=== PATIENT | female | born 1995 | race Caucasian/White ===

== ENCOUNTER 2017-02-18 13:43 | Emergency (ER) | payer OTHER ==
[~2017-02-18] VITALS: Ht 152.4 cm; Wt 59.0 kg
[2017-02-18 13:57] VITALS: TEMP 37.3; Ht 152.4 cm; Wt 59.0 kg
[2017-02-18] MEDS ORDERED: SODIUM CHLORIDE 0.9% 1000ML 1,000 ML IV STA (14:17)
[2017-02-18] MEDS ORDERED: ONDANSETRON INJ 2 MG/ML 2 ML VIAL IV STA (14:17)
[2017-02-18] MEDS ORDERED: MoRPHine SULFATE 4 MG/ML 1 ML CARP\\VIAL IV STA (14:17)
--- NOTE | 2017-02-18 14:22 | EMERGENCY ROOM VISIT NOTE ---
History Report prepared by Xuan: Eugenio Fortune Under the Supervision of: Dr. Nubia Duvall M.D. First contact with patient: 14:07 Chief Complaint: RECTAL PAIN Stated Complaint: SWELLING/PAIN IN RECTAL AREA History of Present Illness The patient is a 21 year old female who presents to the Emergency Room with complaints of worsening right buttocks pain that started last week. She rates her pain as a 10/10 in severity. The patient describes her pain as a "soreness" and reports there is swelling. She states that she went to [facility] for her symptoms , where she was diagnosed with hemorrhoids and was given cream. The patient states that she has been using the cream, but her symptoms have been becoming worse since. She also reports that she has been given stool softener to help alleviate pain when she has a bowel movement. She states that she has never experienced these symptoms in the past. The patient denies any diarrhea, fever, vomiting, allergies, or medical problems. Source of History: patient Onset: last week Position: buttock (right) Symptom Intensity: 10/10 Quality: other (sore) Timing: worsening Modifying Factors (Worsening): other (bowel movement) Associated Symptoms: No fevers, No vomiting, No diarrhea Review of Systems See HPI for pertinent positives & negatives. A total of 10 systems reviewed and were otherwise negative. Past Medical & Surgical The patient reports no pertinent medical or surgical history. Family History Patient reports no known family medical history. Social History Smoking Status: Never Smoker Marital Status: single Occupation Status: student Current/Historical Medications Scheduled Cephalexin Monohydrate (Keflex), 500 MG PO QID Sulfa/Trimethoprim (Bactrim Ds 800MG/160MG), 1 TAB PO BID Allergies Coded Allergies: No Known Allergies (Unverified , 02/18/17) Physical Exam Vital Signs Date Time Temp Pulse Resp B/P (MAP) Pulse Ox O2 Delivery O2 Flow Rate FiO2 02/18/17 17:24 116 16 104/67 94 02/18/17 16:05 100 20 110/71 99 Room Air 02/18/17 14:39 107 02/18/17 13:57 37.3 121 20 108/73 99 Room Air Physical Exam Vital signs reviewed. General: Well-appearing 21 year old female, in no significant distress. HEENT: No scleral icterus, PERRLA, neck supple. Atraumatic. Cardiovascular: Regular rate and rhythm, no extra sounds. Pulmonary: Clear to auscultation bilaterally, normal work of breathing. Abdomen: Soft, nontender, nondistended, positive bowel sounds. Musculoskeletal: Atraumatic, no peripheral edema. Induration of right butt cheek. No hemorrhoid appreciated. Neurologic: Patient awake alert and oriented x 3 Skin: Warm, dry, no rash Medical Decision & Procedures ER Provider Diagnostic Interpretation: CT results as stated below per my review and radiologist interpretation: PELVIS W/IV CONT ONLY (CT) HISTORY: Left gluteal swelling. TECHNIQUE: Multiaxial CT images of the pelvis were performed following the use of intravenous contrast. COMPARISON STUDY: None. FINDINGS: There is a 5.7 x 3.1 cm left perianal peripheral enhancing fluid collection containing a punctate focus of gas. This is consistent with a perianal abscess. There is mild adjacent fat stranding and skin thickening within the left perineal/gluteal location. There is no associated supralevator extension. The bladder, uterus, bilateral ovaries are unremarkable. Trace pelvic free fluid which is likely physiologic. No bowel wall thickening or obstruction. Normal appendix. The visualized osseous structures are within normal limits. IMPRESSION: A 5.7 x 3.1 cm left perianal abscess. Electronically signed by: Sachin Apple M.D. 02/18/2017 3:39 PM Dictated Date/Time: 02/18/2017 3:36 PM Laboratory Results 02/18/17 14:29 Red Blood Count 4.13, Mean Corpuscular Volume 95.4, Mean Corpuscular Hemoglobin 32.7, Mean Corpuscular Hemoglobin Concent 34.3, Mean Platelet Volume 9.6, Neutrophils (%) (Auto) 80.9, Lymphocytes (%) (Auto) 9.1, Monocytes (%) (Auto) 8.7, Eosinophils (%) (Auto) 0.6, Basophils (%) (Auto) 0.2, Neutrophils # (Auto) 14.63, Lymphocytes # (Auto) 1.64, Monocytes # (Auto) 1.57, Eosinophils # (Auto) 0.11, Basophils # (Auto) 0.03 02/18/17 14:29 Test 02/18/17 14:29 White Blood Count 18.07 K/uL (4.8-10.8) Red Blood Count 4.13 M/uL (4.2-5.4) Hemoglobin 13.5 g/dL (12.0-16.0) Hematocrit 39.4 % (37-47) Mean Corpuscular Volume 95.4 fL (80-100) Mean Corpuscular Hemoglobin 32.7 pg (25-34) Mean Corpuscular Hemoglobin Concent 34.3 g/dl (32-36) Platelet Count 313 K/uL (130-400) Mean Platelet Volume 9.6 fL (7.4-10.4) Neutrophils (%) (Auto) 80.9 % Lymphocytes (%) (Auto) 9.1 % Monocytes (%) (Auto) 8.7 % Eosinophils (%) (Auto) 0.6 % Basophils (%) (Auto) 0.2 % Neutrophils # (Auto) 14.63 K/uL (1.4-6.5) Lymphocytes # (Auto) 1.64 K/uL (1.2-3.4) Monocytes # (Auto) 1.57 K/uL (0.11-0.59) Eosinophils # (Auto) 0.11 K/uL (0-0.5) Basophils # (Auto) 0.03 K/uL (0-0.2) RDW Standard Deviation 42.9 fL (36.4-46.3) RDW Coefficient of Variation 12.5 % (11.5-14.5) Immature Granulocyte % (Auto) 0.5 % Immature Granulocyte # (Auto) 0.09 K/uL (0.00-0.02) Urine Color YELLOW Urine Appearance CLEAR (CLEAR) Urine pH 5.5 (4.5-7.5) Urine Specific [place] 1.022 (1.000-1.030) Urine Protein NEG (NEG) Urine Glucose (UA) NEG (NEG) Urine Ketones TRACE (NEG) Urine Occult Blood NEG (NEG) Urine Nitrite NEG (NEG) Urine Bilirubin NEG (NEG) Urine Urobilinogen NEG (NEG) Urine Leukocyte Esterase MODERATE (NEG) Urine WBC (Auto) >30 /hpf (0-5) Urine RBC (Auto) 0-4 /hpf (0-4) Urine Hyaline Casts (Auto) 5-10 /lpf (0-5) Urine Epithelial Cells (Auto) >30 /lpf (0-5) Urine Bacteria (Auto) 1+ (NEG) Anion Gap 5.0 mmol/L (3-11) Est Creatinine Clear Calc Drug Dose 77.5 ml/min Estimated GFR () 102.5 Estimated GFR (Non- 88.5 BUN/Creatinine Ratio 8.1 (10-20) Calcium Level 9.3 mg/dl (8.5-10.1) Total Bilirubin 0.3 mg/dl (0.2-1) Direct Bilirubin < 0.1 mg/dl (0-0.2) Aspartate Amino Transf (AST/SGOT) 11 U/L (15-37) Alanine Aminotransferase (ALT/SGPT) 14 U/L (12-78) Alkaline Phosphatase 70 U/L (45-117) Total Protein 7.6 gm/dl (6.4-8.2) Albumin 3.1 gm/dl (3.4-5.0) Laboratory results per my review. Medications Administered Medications (Trade) Dose Ordered Sig/Jamal Route Start Time Stop Time Status Last Admin Dose Admin Sodium Chloride 1,000 ml @ 999 mls/hr Q1H1M STAT IV 02/18/17 14:17 02/18/17 15:17 DC 02/18/17 14:31 999 MLS/HR Morphine Sulfate (MoRPHine SULFATE INJ) 4 mg NOW STAT IV 02/18/17 14:17 02/18/17 14:20 DC 02/18/17 14:32 4 MG Ondansetron HCl (Zofran Inj) 4 mg NOW STAT IV 02/18/17 14:17 02/18/17 14:20 DC 02/18/17 14:31 4 MG Trimethoprim/ Sulfamethoxazole (Septra Ds 800/ 160MG Tab) 1 tab NOW STAT PO 02/18/17 16:50 02/18/17 16:52 DC 02/18/17 16:59 1 TAB Cephalexin Monohydrate (Keflex Cap) 500 mg NOW ONCE PO 02/18/17 17:00 02/18/17 17:01 DC 02/18/17 16:59 500 MG Procedure Incision & Drainage Indication: Abscess. Location: left gluteal cleft/buttocks Verbal consent was obtained after the risks and benefits were explained, including but not limited to bleeding, scarring, infection, pain, and bone/joint /nerve damage. At this time, the risks of the procedure are less than the risks of NOT performing the procedure. A time out was taken and the correct patient and site identified. The skin was prepped with betadine and a sterile field set. The wound was anesthetized with 3 ml of 1% lidocaine without epinephrine. The abscess cavity was entered with a number 11 blade and purulent material expressed. Copious irrigation was performed using saline. The wound was explored for foreign bodies and none found. Debridement was not performed. Packing placed and a sterile dressing applied. Detailed wound care instructions and signs and symptoms of worsening infection reviewed with the patient. No complications and the patient tolerated the procedure well. ED Course 1411: Past medical records reviewed. The patient was evaluated in room C01B. A complete history and physical examination was performed. 1417: Ordered Zofran Injection 4 mg IV, Morphine Sulfate 4 mg IV, Sodium Chloride 1000 ml @ 999 mls/hr IV. 1615: Ordered Lidocaine HCl 20 ml INFIL. 1650: Ordered Trimethoprim/Sulfamethoxazole 1 tab PO. 1658: I performed an incision and drainage. See procedure notes for further detail. 1700: Ordered Keflex Cap 500 mg PO. 1721: Upon reevaluation, the patient appeared to have improvement of her symptoms. I discussed findings with the patient. She verbalized agreement of the treatment plan. The patient was discharged home. Medical Decision The differential diagnosis includes but is not limited to: cellulitis, abscess, hemorrhoid, contusion, and phlegmon. This patient was evaluated and appeared to be in some discomfort. IV access was obtained and laboratory work was drawn. Patient is found to have an elevated white blood cell count. Physical examination is concerning for induration of the right buttock. Patient seems to be in some discomfort when the area is palpated. She was medicated with IV morphine and Zofran. CT scan of the pelvis was performed and reveals a left perianal abscess. The patient was given 1 g of IV ceftriaxone and a Bactrim tablet. The area was I&D, please my procedure note above. Wound culture was obtained. The patient was discharged on Keflex and Bactrim 7 days. The wound was packed and she was advised to follow-up with [facility] and 48 hours for packing removal. She will return to the ER for worsening of symptoms or any medical concerns. Medication Reconcilliation Current Medication List: was personally reviewed by me Blood Pressure Screening Patient's blood pressure: Normal blood pressure Impression Primary Impression: Perianal abscess Scribe Attestation The scribe's documentation has been prepared under my direction and personally reviewed by me in its entirety. I confirm that the note above accurately reflects all work, treatment, procedures, and medical decision making performed by me. Departure Information Dispostion Home / Self-Care Prescriptions Cephalexin Monohydrate (Keflex) 500 Mg Cap 500 MG PO QID, #28 CAP Prov: Nubia Duvall M.D. 02/18/17 Sulfa/Trimethoprim (Bactrim Ds 800MG/160MG) Tab 1 TAB PO BID, #14 TAB Prov: Nubia Duvall M.D. 02/18/17 Referrals No Doctor, Assigned (PCP) Forms HOME CARE DOCUMENTATION FORM, IMPORTANT VISIT INFORMATION, WORK / SCHOOL INSTRUCTIONS Patient Instructions My [facility] Additional Instructions Diagnosis: Perianal abscess Bactrim DS 1 tablet twice daily for 7 days. Keflex 500 mg 4 times daily for 7 days. Ibuprofen 600 mg every 6 hours as needed for pain with food. Wash with warm water and soap 1-2 times daily and after bowel movements. Follow-up with [facility] in 48 hours for packing removal. Return to the emergency department for worsening of symptoms or any medical concerns.
[2017-02-18] MEDS ORDERED: OPTIRAY 320 IV PRN (14:30)
[2017-02-18 14:47] LABS: BASO % 0.2 %; BASO ABS # 0.03 K/uL (0-0.2); COMPLETE YES; EOS % 0.6 %; HEMATOCRIT 39.4 % (37-47); IG% 0.5 %; LYMPH % 9.1 %; LYMPH ABS # 1.64 K/uL (1.2-3.4); MEAN CELL VOLUME 95.4 fL (80-100); MEAN CORPUSCULAR HEMOGLOBIN 32.7 pg (25-34); MEAN CORPUSCULAR HGB CONC 34.3 g/dl (32-36); MEAN PLATELET VOLUME 9.6 fL (7.4-10.4); MONO % 8.7 %; NEUT % 80.9 %; PLATELET COUNT 313 K/uL (130-400); RED BLOOD COUNT 4.13 M/uL (4.2-5.4); WHITE BLOOD COUNT 18.07 K/uL (4.8-10.8)
[2017-02-18 14:56] LABS: URINE APPEARANCE CLEAR (CLEAR); URINE BILIRUBIN NEG (NEG); URINE COLOR YELLOW; URINE EPITHELIAL CELL AUTO >30 /lpf (0-5); URINE NITRITE NEG (NEG); URINE PH 5.5 (4.5-7.5); URINE SPECIFIC GRAVITY 1.022 (1.000-1.030); UROBILINOGEN NEG (NEG); ZZUR CULT IF INDIC CLEAN CATCH YES
[2017-02-18 15:03] LABS: ALT/SGPT 14 U/L (12-78); AST/SGOT 11 U/L (15-37); BLOOD UREA NITROGEN 8 mg/dl (7-18); BUN/CREATININE RATIO 8.1 (10-20); CALCIUM 9.3 mg/dl (8.5-10.1); CARBON DIOXIDE 29 mmol/L (21-32); CHLORIDE 103 mmol/L (98-107); CREATININE 0.93 mg/dl (0.60-1.20); GLUCOSE 102 mg/dl (70-99); POTASSIUM 3.5 mmol/L (3.5-5.1); SODIUM 137 mmol/L (136-145)
[2017-02-18 15:06] LABS: ALKALINE PHOSPHATASE 70 U/L (45-117)
[2017-02-18 15:19] LABS: MANUAL MICROSCOPIC REQUIRED? NO; REVIEW REQ? NO
--- NOTE | 2017-02-18 15:41 | DIAGNOSTIC IMAGING REPORT ---
PELVIS W/IV CONT ONLY (CT) HISTORY: Left gluteal swelling. TECHNIQUE: Multiaxial CT images of the pelvis were performed following the use of intravenous contrast. COMPARISON STUDY: None. FINDINGS: There is a 5.7 x 3.1 cm left perianal peripheral enhancing fluid collection containing a punctate focus of gas. This is consistent with a perianal abscess. There is mild adjacent fat stranding and skin thickening within the left perineal/gluteal location. There is no associated supralevator extension. The bladder, uterus, bilateral ovaries are unremarkable. Trace pelvic free fluid which is likely physiologic. No bowel wall thickening or obstruction. Normal appendix. The visualized osseous structures are within normal limits. IMPRESSION: A 5.7 x 3.1 cm left perianal abscess. Electronically signed by: Sachin Apple M.D. 02/18/2017 3:39 PM Dictated Date/Time: 02/18/2017 3:36 PM
[2017-02-18] MEDS ORDERED: XYLOCAINE 1%/SOD BICARB 20 ML VIAL INFIL ONE (16:15)
[2017-02-18] MEDS ORDERED: SULFAMETHOXAZOLE/TRIMETHOPRIM DS 800/160MG TAB PO STA (16:50)
[2017-02-18] MEDS ORDERED: CEPHALEXIN MONOHYDRATE 250 MG CAP PO ONE (17:00)
[2017-02-18] MEDS ORDERED: SULF800T23 PO (17:05)
[2017-02-18] MEDS ORDERED: CEPH500C PO (17:05)
[2017-02-18 17:24] VITALS: BP 104/67; PULSE 116; O2SAT 94
--- NOTE | 2017-02-21 13:24 | Pharmacy Progress Note ---
ED Pharmacist Culture FollowUp Date of Service: Feb 21, 2017. Patient was sent home with prescriptions for cephalexin and Bactrim, which should both cover the E. coli growing from the patient's abscess culture. Called patient, who noted improvement in her symptoms. Informed that she could stop cephalexin, but should continue Bactrim for the full course of therapy. Patient acknowledged understanding. Case discussed with Dr. Knight.
== END 2017-02-18 17:25 | disposition home or self-care (01) ==
LOC: C.EDB 13:45 → C.EDC 17:25
DX: K61.0 Anal abscess (principal)

== ENCOUNTER 2017-07-09 18:18 | Emergency (ER) | payer OTHER ==
[~2017-07-09] VITALS: Ht 152.4 cm; Wt 58.8 kg
[~2017-07-09 18:18] MED LIST: CEPH500C PO; SULF800T23 PO
[2017-07-09 18:51] VITALS: Ht 152.4 cm; Wt 58.8 kg
[2017-07-09 20:02] VITALS: O2SAT 95
[2017-07-09] MEDS ORDERED: ALBUT/IPRATROP 3MG/0.5MG NEB 3 ML VIAL INH STA ×2 (20:10→21:06)
[2017-07-09] MEDS ORDERED: DEXAMETHASONE CONC 1 MG/ML 30 ML PO STA (20:12)
--- NOTE | 2017-07-09 20:20 | EMERGENCY ROOM VISIT NOTE ---
History Report prepared by Xuan: Hedy Juarez Under the Supervision of: Dr. Reyna Bill D.O. First contact with patient: 19:51 Chief Complaint: SHORTNESS OF BREATH Stated Complaint: DIFFICULTY BREATHING,CHEST TIGHNESS, ASTHMA Nursing Triage Summary: patient c/o SOB, body achiness, asthma flare up since last night. History of Present Illness The patient is a 21 year old female who presents to the Emergency Room with complaints of constant shortness of breath and chest tightness beginning last night. The patient states she started to had a productive cough, a sore throat, and sinus congestion over the weekend. She reports she also had the chills last night but she denies taking her temperature. She states it feels like she is "breathing fast" and states she has difficulty taking a deep breath when she lays down. The patient denies any recent sick contact. The patient as a history of asthma. She states she has not had any problems with her asthma in a couple years. The patient denies using her inhaler for her symptoms. The patient states when she was a young child she had to be hospitalized for her asthma. The patient believes her symptoms feel like when she has had asthma flare ups but she is unsure since she hasn't had a flare up in a couple years. She denies any recent travel. Pt denies headache, change in vision, fevers, nausea, vomiting, diarrhea, pain with urination, and melena. The patient did not get a flu shot this year. Source of History: patient Onset: last night Position: other (generalized) Quality: other (shortness of breath, chest tightness) Timing: constant Associated Symptoms: + cough, + chest pain, + SOB, No fevers, No headache, No nausea, No vomiting, No diarrhea, No urinary symptoms Review of Systems See HPI for pertinent positives & negatives. A total of 10 systems reviewed and were otherwise negative. Past Medical & Surgical Medical Problems: (1) Asthma Family History Patient reports no known family medical history. Social History Smoking Status: Never Smoker Marital Status: single Occupation Status: student Current/Historical Medications Scheduled Control Pills ( Control Pills), 1 TAB PO DAILY Allergies Coded Allergies: No Known Allergies (Unverified , 07/09/17) Physical Exam Vital Signs Date Time Temp Pulse Resp B/P (MAP) Pulse Ox O2 Delivery O2 Flow Rate FiO2 07/10/17 00:29 37.3 100 18 100/48 97 07/10/17 00:28 37.3 07/10/17 00:19 100/48 07/10/17 00:19 37.3 100 18 100/48 97 Room Air 07/10/17 00:19 100/48 07/10/17 00:18 103 97 07/10/17 00:18 103 97 07/10/17 00:13 108 97 07/10/17 00:13 108 97 07/09/17 23:28 113 16 99 07/09/17 23:28 113 16 99 07/09/17 23:23 115 18 99 07/09/17 23:00 103/65 07/09/17 22:53 117 22 97 07/09/17 22:30 38.7 07/09/17 22:23 131 23 96 07/09/17 22:18 143 24 98 07/09/17 22:01 103/60 07/09/17 21:48 141 33 07/09/17 21:19 121/70 07/09/17 21:18 140 22 07/09/17 21:08 39.3 07/09/17 20:31 133 07/09/17 20:27 128 20 100 Nebulizer 07/09/17 20:03 118 24 95 Room Air 07/09/17 20:02 95 Room Air 07/09/17 18:51 38.6 139 18 126/85 96 Room Air Physical Exam GENERAL: alert, well appearing, well nourished, no distress, non-toxic EYE EXAM: normal conjunctiva, PERRL and EOM's grossly intact OROPHARYNX: no exudate, no erythema, lips, buccal mucosa, and tongue normal and mucous membranes are moist NECK: supple, no nuchal rigidity, no adenopathy, non-tender LUNGS: Decreased breath sounds, no wheezes, rhonchi, or rales. HEART: no murmurs, S1 normal and S2 normal ABDOMEN: abdomen soft, non-tender, normo-active bowel sounds, no masses, no rebound or guarding. BACK: Back is symmetrical on inspection and there is no deformity, no midline tenderness, no CVA tenderness. SKIN: no rashes and no bruising UPPER EXTREMITIES: upper extremities are grossly normal. LOWER EXTREMITIES: No pitting edema. NEURO EXAM: Normal sensorium, cranial nerves II-XII grossly intact, normal speech, no gross weakness of arms, no gross weakness of legs. Medical Decision & Procedures ER Provider Diagnostic Interpretation: Radiology results have been interpreted by the radiologist and reviewed by me. CHEST 2 VIEWS ROUTINE FINDINGS: The bones soft tissues and hemidiaphragms are normal. The cardiomediastinal silhouette is normal. The lungs are clear. The pulmonary vasculature is normal. IMPRESSION: Negative chest. The above report was generated using voice recognition software. It may contain grammatical, syntax or spelling errors. Electronically signed by: Pritesh Shelton M.D. Laboratory Results 07/09/17 21:50 Red Blood Count 4.22, Mean Corpuscular Volume 91.9, Mean Corpuscular Hemoglobin 31.8, Mean Corpuscular Hemoglobin Concent 34.5, Mean Platelet Volume 9.8, Neutrophils (%) (Auto) 79.2, Lymphocytes (%) (Auto) 14.1, Monocytes (%) (Auto) 5.5, Eosinophils (%) (Auto) 0.7, Basophils (%) (Auto) 0.1, Neutrophils # (Auto) 8.85, Lymphocytes # (Auto) 1.57, Monocytes # (Auto) 0.61, Eosinophils # (Auto) 0.08, Basophils # (Auto) 0.01 07/09/17 21:50 Test 07/09/17 20:00 07/09/17 21:50 Influenza Type A Antigen Neg for Influ A (NEG) Influenza Type B Antigen Neg for Influ B (NEG) White Blood Count 11.16 K/uL (4.8-10.8) Red Blood Count 4.22 M/uL (4.2-5.4) Hemoglobin 13.4 g/dL (12.0-16.0) Hematocrit 38.8 % (37-47) Mean Corpuscular Volume 91.9 fL (80-100) Mean Corpuscular Hemoglobin 31.8 pg (25-34) Mean Corpuscular Hemoglobin Concent 34.5 g/dl (32-36) Platelet Count 225 K/uL (130-400) Mean Platelet Volume 9.8 fL (7.4-10.4) Neutrophils (%) (Auto) 79.2 % Lymphocytes (%) (Auto) 14.1 % Monocytes (%) (Auto) 5.5 % Eosinophils (%) (Auto) 0.7 % Basophils (%) (Auto) 0.1 % Neutrophils # (Auto) 8.85 K/uL (1.4-6.5) Lymphocytes # (Auto) 1.57 K/uL (1.2-3.4) Monocytes # (Auto) 0.61 K/uL (0.11-0.59) Eosinophils # (Auto) 0.08 K/uL (0-0.5) Basophils # (Auto) 0.01 K/uL (0-0.2) RDW Standard Deviation 43.5 fL (36.4-46.3) RDW Coefficient of Variation 13.1 % (11.5-14.5) Immature Granulocyte % (Auto) 0.4 % Immature Granulocyte # (Auto) 0.04 K/uL (0.00-0.02) Anion Gap 12.0 mmol/L (3-11) Est Creatinine Clear Calc Drug Dose 79.1 ml/min Estimated GFR () 105.3 Estimated GFR (Non- 90.8 BUN/Creatinine Ratio 11.0 (10-20) Calcium Level 8.8 mg/dl (8.5-10.1) Total Bilirubin 0.2 mg/dl (0.2-1) Aspartate Amino Transf (AST/SGOT) 30 U/L (15-37) Alanine Aminotransferase (ALT/SGPT) 22 U/L (12-78) Alkaline Phosphatase 56 U/L (45-117) Troponin I < 0.015 ng/ml (0-0.045) Total Protein 7.7 gm/dl (6.4-8.2) Albumin 3.8 gm/dl (3.4-5.0) Globulin 3.9 gm/dl (2.5-4.0) Albumin/Globulin Ratio 1.0 (0.9-2) Human Chorionic Gonadotropin, Qual NEG (NEG) Laboratory results per my review. Medications Administered Medications (Trade) Dose Ordered Sig/Jamal Route Start Time Stop Time Status Last Admin Dose Admin Albuterol/ Ipratropium (Duoneb) 3 ml NOW STAT INH 07/09/17 20:10 07/09/17 20:14 DC 07/09/17 20:25 3 ML Dexamethasone (Decadron Conc Soln) 10 mg 2100 PO 07/09/17 21:00 1/22/18 23:00 DC 07/09/17 21:21 10 MG Acetaminophen (Tylenol Tab) 1,000 mg NOW STAT PO 07/09/17 21:06 07/09/17 21:07 DC 07/09/17 21:20 1,000 MG Albuterol/ Ipratropium (Duoneb) 3 ml NOW STAT INH 07/09/17 21:06 07/09/17 21:07 DC 07/09/17 21:21 3 ML Ketorolac Tromethamine (Toradol Inj) 30 mg NOW STAT IV 07/09/17 22:31 07/09/17 22:32 DC 07/09/17 23:00 30 MG Sodium Chloride 1,000 ml @ 999 mls/hr Q1H1M STAT IV 07/09/17 22:37 07/09/17 23:37 DC 07/09/17 23:00 999 MLS/HR ECG Indication: SOB/dyspnea Rate (beats per minute): 120 Rhythm: sinus tachycardia Findings: no acute ischemic change, no ectopy, other (normal axis normal interval ) ED Course 1999: The patient was evaluated in room C9. A complete history and physical exam was performed. 2009: Ordered Duoneb 3 ml INH. 2099: Ordered Dexamethasone 10 mg PO. 3: The patient feels slightly better after receiving the medication Her bedside temperature is 102.8 degrees Fahrenheit. 6: Ordered Duoneb 3 ml INh, Tylenol 1000 mg PO. 2228: The patient feels better. On reassessment of lungs, the patient has increased air movement. 2231: Ordered Toradol Inj 30 mg IV. 2237: Ordered Sodium Chloride 1000 ml @ 999 mls/hr IV. 2334: Patient's heart rate 114, patient states breathing improved. 0005: T 98.7, HR 103. No MERA, pt reports feeling improved. Able to lay down without any trouble breathing. No dizziness. Medical Decision Differential diagnosis: Etiologies such as infections, reactive airway disease, pneumonia, pneumothorax , COPD, CHF, cardiac ischemia, pulmonary embolism, musculoskeletal, gastrointestinal, as well as others were entertained. Patient well-appearing here and improved following nebulizer treatments, IV fluids, and treatment of fever. Likely given recent several days of URI and flulike symptoms, this exacerbated her underlying asthma. No evidence of infiltrate or effusion on chest x-ray, doubt occult cardiac etiology including pericarditis or myocarditis. Tachycardia likely secondary to fever and dehydration, patient never hypoxic here. Doubt PE. Patient improved following nebs and was able to ambulate without any residual sense of shortness of breath or hypoxia. Discussed with patient appropriate use of MDI an inhaler, fever control, hydration, follow-up with PCP or S as a precaution, symptoms watch and return for, she verbalized understanding was agreeable with plan. Medication Reconcilliation Current Medication List: was personally reviewed by me Blood Pressure Screening Patient's blood pressure: Normal blood pressure Impression Primary Impression: Asthma with exacerbation Additional Impressions: Dyspnea URI (upper respiratory infection) Scribe Attestation The scribe's documentation has been prepared under my direction and personally reviewed by me in its entirety. I confirm that the note above accurately reflects all work, treatment, procedures, and medical decision making performed by me. Departure Information Dispostion Home / Self-Care Referrals No Doctor, Assigned (PCP) Patient Instructions My [facility] Additional Instructions Please drink plenty of water, you may use Tylenol and ibuprofen as needed for fevers and pain. Please use your inhaler and spacer up to every 4 hours as needed for wheezing, shortness of breath, chest tightness. Please follow up with your family doctor as a precaution to assure your symptoms are getting better. If you have any worsening symptoms including increased trouble breathing, noticed a change in your sputum or coughing up blood, develop vomiting, chest pain, rash or sores, dizziness, passing out, diarrhea, or you' ve any other new concerns, please return the emergency room. Problem Qualifiers Primary Impression: Asthma with exacerbation Asthma severity: mild Asthma persistence: intermittent Qualified Codes: J45.21 - Mild intermittent asthma with (acute) exacerbation Additional Impressions: Dyspnea Dyspnea type: shortness of breath Qualified Codes: R06.02 - Shortness of breath URI (upper respiratory infection) URI type: unspecified URI Qualified Codes: J06.9 - Acute upper respiratory infection, unspecified
--- NOTE | 2017-07-09 20:45 | DIAGNOSTIC IMAGING REPORT ---
CHEST 2 VIEWS ROUTINE CLINICAL HISTORY: sob dyspnea COMPARISON STUDY: No previous studies for comparison. FINDINGS: The bones soft tissues and hemidiaphragms are normal. The cardiomediastinal silhouette is normal. The lungs are clear. The pulmonary vasculature is normal. IMPRESSION: Negative chest. The above report was generated using voice recognition software. It may contain grammatical, syntax or spelling errors. Electronically signed by: Pritesh Sheltno M.D. 07/09/2017 8:44 PM Dictated Date/Time: 07/09/2017 8:43 PM
[2017-07-09] MEDS ORDERED: BCPILLS PO (20:52)
[2017-07-09] MEDS ORDERED: DEXAMETHASONE CONC 1 MG/ML 30 ML PO SCH (21:00)
[2017-07-09] MEDS ORDERED: ACETAMINOPHEN 500 MG TAB PO STA (21:06)
[2017-07-09 21:17] LABS: INFLUENZA B ANTIGEN Neg for Influ B (NEG)
[2017-07-09 22:05] LABS: BASO % 0.1 %; BASO ABS # 0.01 K/uL (0-0.2); EOS % 0.7 %; EOS ABS # 0.08 K/uL (0-0.5); HEMATOCRIT 38.8 % (37-47); HEMOGLOBIN 13.4 g/dL (12.0-16.0); IG# 0.04 K/uL (0.00-0.02); LYMPH % 14.1 %; LYMPH ABS # 1.57 K/uL (1.2-3.4); MEAN CELL VOLUME 91.9 fL (80-100); MEAN CORPUSCULAR HEMOGLOBIN 31.8 pg (25-34); MEAN CORPUSCULAR HGB CONC 34.5 g/dl (32-36); MEAN PLATELET VOLUME 9.8 fL (7.4-10.4); MONO % 5.5 %; MONO ABS # 0.61 K/uL (0.11-0.59); NEUT % 79.2 %; NEUT ABS # 8.85 K/uL (1.4-6.5); PLATELET COUNT 225 K/uL (130-400); RED CELL DISTRIBUTION WIDTH CV 13.1 % (11.5-14.5); RED CELL DISTRIBUTION WIDTH SD 43.5 fL (36.4-46.3); WHITE BLOOD COUNT 11.16 K/uL (4.8-10.8)
[2017-07-09 22:19] LABS: ALBUMIN 3.8 gm/dl (3.4-5.0); ALT/SGPT 22 U/L (12-78); BLOOD UREA NITROGEN 10 mg/dl (7-18); CALCIUM 8.8 mg/dl (8.5-10.1); CARBON DIOXIDE 21 mmol/L (21-32); CREATININE 0.91 mg/dl (0.60-1.20); GLUCOSE 110 mg/dl (70-99); POTASSIUM 3.2 mmol/L (3.5-5.1); SODIUM 133 mmol/L (136-145)
[2017-07-09 22:24] LABS: ALKALINE PHOSPHATASE 56 U/L (45-117); AST/SGOT 30 U/L (15-37); TOTAL PROTEIN 7.7 gm/dl (6.4-8.2)
[2017-07-09] MEDS ORDERED: KETOROLAC TROMETHAMINE 30 MG/ML VIAL IV STA (22:31)
[2017-07-09] MEDS ORDERED: SODIUM CHLORIDE 0.9% 1000ML 1,000 ML IV STA (22:37)
[2017-07-10 00:29] VITALS: BP 100/48; PULSE 100; TEMP 37.3; O2SAT 97
== END 2017-07-10 00:25 | disposition home or self-care (01) ==
LOC: C.EDB 18:19 → C.EDC 07-10 00:25
DX: J45.21 Mild intermittent asthma with (acute) exacerbation (principal); J06.9 Acute upper respiratory infection, unspecified; Z79.3 Long term (current) use of hormonal contraceptives